=== PATIENT | male | born 1995 ===

== ENCOUNTER 2021-12-31 16:47 | Emergency (ER) | payer OTHER, SELFPAY ==
--- NOTE | ~2021-12-31 | XR_ITS ---
EXAMINATION: XR RIBS, RIGHT CLINICAL INFORMATION: Fall with right-sided rib pain COMPARISON: None TECHNIQUE: Frontal view the chest and 3 oblique views of the right ribs were obtained. FINDINGS: Lungs are clear. No consolidation, pneumothorax, or pleural effusion. The cardiomediastinal silhouette and pulmonary vasculature are normal. Osseous structures are unremarkable. Ribs are intact. No displaced rib fractures are identified. XR/XR ribs RT min 3V w CXR1V IMPRESSION: Unremarkable examination. No displaced rib fracture
[2021-12-31 17:06] VITALS: BP 101/57; PULSE 62; RESP 18; TEMP 36.7; O2SAT 100; BMI 22.6
[2021-12-31] MEDS: Lidocaine 4 % Patch ADH..PATCH 1 PATCH TRANSDERMA (17:41)
[2021-12-31] MEDS: Cyclobenzaprine HCl 5 MG TABLET PO (17:42)
[2021-12-31] MEDS: Ketorolac Tromethamine 30 MG/ML VIAL IM (17:42)
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
[2021-12-31 19:13] VITALS: RESP 17
== END 2021-12-31 19:17 | disposition home or self-care (01) ==
PROVIDERS: Emergency Provider Internal Medicine
DX: M54.50 Low back pain, unspecified (principal); S20.211A Contusion of right front wall of thorax, initial encounter; W00.0XXA Fall on same level due to ice and snow, initial encounter; Y93.89 Activity, other specified; Y92.410 Unspecified street and highway as the place of occurrence of the external cause; Y99.9 Unspecified external cause status
CPT/HCPCS: 71101; 96372; 99284; J1885

== ENCOUNTER 2023-02-20 12:16 | Emergency (ER) | payer OTHER, SELFPAY ==
[2023-02-20 12:34] VITALS: BP 108/59; PULSE 73; RESP 18; TEMP 36.6; O2SAT 99; BMI 19.8
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
[2023-02-20] MEDS: cefTRIAXone sodium 250 MG, Lidocaine HCl 1 % MPF 0.9 ML IM (13:40)
[2023-02-20 13:51] LABS: Appearance Urine Clear; Color Urine Yellow; Glucose Urine UA Negative (Negative); Leukocyte Esterase Urine Negative (Negative); Nitrite Urine Negative (Negative); Specific Gravity - Urine 1.025 (1.005-1.025); UMIC TRIGGER UACC YES; Urine Blood Moderate (2+) (Negative); Urine Ketones Negative (Negative); Urine Protein Negative (Neg-Trace)
[2023-02-20 13:55] LABS: Bacteria Urine None Seen (None Seen); Hyaline Casts Urine 0-2 /LPF (0-2); RBC Urine >20 /HPF (0-2); Squamous Epithelial Cell Urine 0-2 /HPF (0-2); WBC Urine 0-5 /HPF (0-5)
[2023-02-20 15:47] LABS: CT PCR DETECTED (Not Detect.); NG PCR NOT DETECTED (Not Detect.)
== END 2023-02-20 13:58 | disposition home or self-care (01) ==
PROVIDERS: Physician Assistant Medical; Emergency Provider Emergency Medicine
DX: Z20.2 Contact with and (suspected) exposure to infections with a predominantly sexual mode of transmission (principal)
CPT/HCPCS: 0353U; 81001; 96372; 99283; 99284; J0696

== ENCOUNTER 2023-02-23 15:06 | Emergency (ER) | payer OTHER, SELFPAY ==
--- NOTE | 2023-02-23 15:18 | ED_ITS ---
HPI - Back Pain/Injury General Chief Complaint: Back Pain/Injury <ALANA Esquivel Last Filed: 02/23/23 15:22> Stated Complaint: lower back pain/vomiting <ALANA Esquivel Last Filed: 02/23/23 15:22> Time Seen by Provider: 02/23/23 15:49 <ALANA Esquivel Last Filed: 02/23/23 15:22> History of Present Illness HPI Narrative: Patient complains of left lower back pain which started after lifting some boxes, he has had back pain before, pain is now rated as moderate, it is worse with movement there is no muscle weakness or loss of sensation there is no changes to bowel or bladder there is no fever no IV drug use, he has no incontinence no dysuria no frequency no fevers Patient did have 1 episode of vomiting after taking a muscle relaxer for the 1st time earlier today, when he got to the ER the nausea was almost gone he was given a Zofran now he is not nauseous and has no complaint of abdominal pain or diarrhea <ALANA Caldera Last Filed: 02/27/23 19:58> Related Data Home Medications: Previous Rx's Medication Instructions Recorded acetaminophen 500 mg tablet 500 mg PO Q6H PRN pain or fever 12/31/21 (Tylenol Extra Strength) #20 tabs cyclobenzaprine 5 mg tablet 5 mg PO Q8H PRN pain (scale score 12/31/21 7-10) 5 days #14 tabs lidocaine 5 % topical patch 1 patch topical DAILY PRN pain #30 12/31/21 (Lidoderm) ea naproxen 500 mg tablet 500 mg PO BID PRN pain 10 days #20 12/31/21 tabs doxycycline hyclate 100 mg tablet 100 mg PO BID #14 tabs 02/20/23 acetaminophen 500 mg tablet 1,000 mg PO QID PRN pain #30 tabs 02/23/23 ibuprofen 600 mg tablet 600 mg PO Q6H PRN pain #20 tabs 02/23/23 lidocaine 5 % topical patch 2 patch topical DAILY PRN back 02/23/23 pain #30 ea <ALANA Esquivel Last Filed: 02/23/23 15:22> Allergies/Adverse Reactions: Allergies Allergy/AdvReac Type Severity Reaction Status Date / Time No Known Allergies Allergy Verified 02/20/23 12:34 <ALANA Esquivel - Last Filed: 02/23/23 15:22> [facility] Past Medical History Source: nursing notes reviewed <ALANA Caldera - Last Filed: 02/27/23 19:58> Medical History: Medical History No known health problems <ALANA Esquivel - Last Filed: 02/23/23 15:22> Social History Social History: Social History Advance Directives: No Advance Directives Information Provided: No <ALANA Esquivel - Last Filed: 02/23/23 15:22> Physical Exam Vital Signs: Vital Signs: Last Vital Signs Temp 98.4 F 02/23/23 15:19 Pulse 76 02/23/23 15:19 Resp 18 02/23/23 15:19 BP 138/69 02/23/23 15:19 Pulse Ox 98 02/23/23 15:19 O2 Del Method Room Air 02/23/23 15:19 BMI result Body Mass Index 20.5 <ALANA Esquivel - Last Filed: 02/23/23 15:22> Vital Signs: Last Vital Signs Temp 98.4 F 02/23/23 15:19 Pulse 76 02/23/23 15:19 Resp 18 02/23/23 15:19 BP 138/69 02/23/23 15:19 Pulse Ox 98 02/23/23 15:19 O2 Del Method Room Air 02/23/23 15:19 BMI result Body Mass Index 20.5 <ALANA Caldera - Last Filed: 02/27/23 19:58> General appearance is no acute distress Head is normocephalic atraumatic The neck is supple Chest is clear chest wall nontender Heart no murmur Abdomen is soft nontender The back had lower lumbar paraspinal tenderness there is no midline bony tenderness, skin of the back is normal no CVA tenderness, pain is easily reproduced with bending and movement Extremities is full range of motion x4 Neuro motor is 5/5 x4, gait and balance normal, stye sensation in distal lower extremities intact and symmetrical <ALANA Caldera - Last Filed: 02/27/23 19:58> Course Course Course Narrative: RME--27yo M w/no sig PMHx c/o low back pain with assoc nausea and vomiting after taking a muscle relaxer. Admits to decreased/inability to tolerate PO, unsure if sx related to taking muscle relaxer on empty stomach. Reports recent heavy lifting at work. denies fever, chills, incontinence or retention Ambulating with steady gait, no red flag sx IM Toradol, Lidoderm patch and SL Zofran ordered <ALANA Esquivel - Last Filed: 02/23/23 15:22> RME--27yo M w/no sig PMHx c/o low back pain with assoc nausea and vomiting after taking a muscle relaxer. Admits to decreased/inability to tolerate PO, unsure if sx related to taking muscle relaxer on empty stomach. Reports recent heavy lifting at work. denies fever, chills, incontinence or retention Ambulating with steady gait, no red flag sx IM Toradol, Lidoderm patch and SL Zofran ordered patient had 1 episode of vomiting after taking a muscle relaxer for his back, the nausea resolved mostly on its own and then he was given a Zofran here and now he is not nauseous Before taking a muscle relaxer he had no nausea he never had any abdominal pain now he is tolerating p.o. and is only complaint is back pain with movement The back pain is left lower back pain worse with movement no radiation no change to bowel or bladder no neurologic symptoms no IV drug use no fever and well- appearing patient with musculoskeletal back pain is discharged <ALANA Caldera - Last Filed: 02/27/23 19:58> Medications Administered Discontinued Medications Generic Name Dose Route Start Last Admin Trade Name Ollie PRN Reason Stop Dose Admin Ketorolac Tromethamine 30 mg 02/23/23 15:21 02/23/23 15:51 Ketorolac Tromethamine 30 Mg/Ml Vial IM 02/23/23 15:22 30 mg ONCE ONE Administration Lidocaine 1 patch 02/23/23 15:21 02/23/23 15:50 Lidocaine 4 % Patch Adh..Patch TRANSDERMA 02/23/23 15:22 1 patch ONCE ONE Administration Protocol Ondansetron HCl 4 mg 02/23/23 15:21 02/23/23 15:50 Ondansetron Odt 4 Mg Tab.Oswaldodis TRANSLINGU 02/23/23 15:22 4 mg ONCE ONE Administration <ALANA Esquivel - Last Filed: 02/23/23 15:22> Medications Administered Discontinued Medications Generic Name Dose Route Start Last Admin Trade Name Freq PRN Reason Stop Dose Admin Ketorolac Tromethamine 30 mg 02/23/23 15:21 02/23/23 15:51 Ketorolac Tromethamine 30 Mg/Ml Vial IM 02/23/23 15:22 30 mg ONCE ONE Administration Lidocaine 1 patch 02/23/23 15:21 02/23/23 15:50 Lidocaine 4 % Patch Adh..Patch TRANSDERMA 02/23/23 15:22 1 patch ONCE ONE Administration Protocol Ondansetron HCl 4 mg 02/23/23 15:21 02/23/23 15:50 Ondansetron Odt 4 Mg Tab.Joelle TRANSLINGU 02/23/23 15:22 4 mg ONCE ONE Administration <ALANA Caldera - Last Filed: 02/27/23 19:58> Discharge Plan Discharge Clinical Impression: Strain of lumbar region <ALANA Esquivel - Last Filed: 02/23/23 15:22> Patient Disposition: Home, Self-Care <ALANA Esquivel - Last Filed: 02/23/23 15:22> Additional Instructions: follow with primary doctor for further evaluation as needed Return any time any worse condition or any concerns <ALANA Esquivel - Last Filed: 02/23/23 15:22> Prescriptions: New lidocaine 5 % adhesive patch,medicated 2 patch topical DAILY PRN (Reason: back pain) Qty: 30 0RF Rx Instructions: leave on most painful area for up to 12 hrs acetaminophen 500 mg tablet 1,000 mg PO QID PRN (Reason: pain) Qty: 30 0RF ibuprofen 600 mg tablet 600 mg PO Q6H PRN (Reason: pain) Qty: 20 0RF No Action acetaminophen [Tylenol Extra Strength] 500 mg tablet 500 mg PO Q6H PRN (Reason: pain or fever) Qty: 20 0RF lidocaine [Lidoderm] 5 % adhesive patch,medicated 1 patch topical DAILY MDD remove after 12 hours PRN (Reason: pain) Qty: 30 0RF Rx Instructions: leave on most painful area for up to 12 hrs naproxen 500 mg tablet 500 mg PO BID PRN (Reason: pain) 10 Days Qty: 20 0RF cyclobenzaprine 5 mg tablet 5 mg PO Q8H PRN (Reason: pain (scale score 7-10)) 5 Days Qty: 14 0RF doxycycline hyclate 100 mg tablet 100 mg PO BID Qty: 14 0RF <ALANA Esquivel - Last Filed: 02/23/23 15:22> Stand Alone Forms: Work/School Release <ALANA Esquivel - Last Filed: 02/23/23 15:22> Interventions: ED Discharge Assessment Last Done: 02/23/23 17:09 <ALANA Esquivel - Last Filed: 02/23/23 15:22> Discharge Date/Time: 02/23/23 17:10 <ALANA Esquivel - Last Filed: 02/23/23 15:22>
[2023-02-23 15:19] VITALS: BP 138/69; PULSE 76; RESP 18; TEMP 36.9; O2SAT 98; BMI 20.5
[2023-02-23] MEDS: Lidocaine 4 % Patch ADH..PATCH 1 PATCH TRANSDERMA (15:50)
[2023-02-23] MEDS: Ondansetron ODT 4 MG TAB.RAPDIS TRANSLINGU (15:50)
[2023-02-23] MEDS: Ketorolac Tromethamine 30 MG/ML VIAL IM (15:51)
== END 2023-02-23 17:10 | disposition home or self-care (01) ==
PROVIDERS: Emergency Provider Emergency Medicine
DX: S39.012A Strain of muscle, fascia and tendon of lower back, initial encounter (principal); X58.XXXA Exposure to other specified factors, initial encounter; Y93.9 Activity, unspecified; Y92.9 Unspecified place or not applicable; Y99.9 Unspecified external cause status; Z79.899 Other long term (current) drug therapy
CPT/HCPCS: 96372; 99283; 99284; J1885

== ENCOUNTER 2023-03-30 16:07 | Emergency (ER) | payer OTHER, SELFPAY ==
[2023-03-30 16:09] VITALS: BP 119/67; PULSE 113; RESP 16; TEMP 36.9; O2SAT 98; BMI 20.7
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
[2023-03-30 16:44] VITALS: BP 110/59; PULSE 83; RESP 16; O2SAT 97
== END 2023-03-30 16:47 | disposition home or self-care (01) ==
PROVIDERS: Emergency Provider Emergency Medicine
DX: Z04.1 Encounter for examination and observation following transport accident (principal); M54.6 Pain in thoracic spine
CPT/HCPCS: 99283; 99284

== ENCOUNTER 2023-05-22 15:02 | Emergency (ER) | payer OTHER, SELFPAY ==
[2023-05-22 15:12] VITALS: BP 110/75; PULSE 64; RESP 16; TEMP 36.6; O2SAT 99; BMI 21.6
--- NOTE | 2023-05-22 15:13 | ED.DENTAL ---
HPI - Dental/Oral General Chief complaint: Dental/Oral Stated complaint: tooth pain Time Seen by Provider: 05/22/23 15:18 Source: patient, RN notes reviewed and old records reviewed Mode of arrival: ambulatory History of Present Illness HPI Narrative: 28-year-old male with no significant past medical history presenting to the ED complaining of right upper dental pain x 2 days radiating to right ear/face. Admits has not seen a dentist for about 4 or 5 years. Denies recent dental procedures, fever/chills, drainage from area, sore throat, difficulty or inability to swallow MD Complaint: tooth pain Related Data Previous Rx's Medication Instructions Recorded acetaminophen 500 mg tablet 500 mg PO Q6H PRN pain or fever 12/31/21 (Tylenol Extra Strength) #20 tabs cyclobenzaprine 5 mg tablet 5 mg PO Q8H PRN pain (scale score 12/31/21 7-10) 5 days #14 tabs lidocaine 5 % topical patch 1 patch topical DAILY PRN pain #30 12/31/21 (Lidoderm) ea naproxen 500 mg tablet 500 mg PO BID PRN pain 10 days #20 12/31/21 tabs doxycycline hyclate 100 mg tablet 100 mg PO BID #14 tabs 02/20/23 acetaminophen 500 mg tablet 1,000 mg PO QID PRN pain #30 tabs 02/23/23 ibuprofen 600 mg tablet 600 mg PO Q6H PRN pain #20 tabs 02/23/23 lidocaine 5 % topical patch 2 patch topical DAILY PRN back 02/23/23 pain #30 ea acetaminophen 500 mg tablet 500 mg PO Q6H PRN fever or pain 03/30/23 (Tylenol Extra Strength) #14 tabs cyclobenzaprine 5 mg tablet 5 mg PO Q8H PRN pain (scale score 03/30/23 7-10) 5 days #14 tabs lidocaine 5 % topical patch 1 patch topical DAILY PRN pain #30 03/30/23 (Lidoderm) ea naproxen 500 mg tablet 500 mg PO BID PRN pain 10 days #20 03/30/23 tabs amoxicillin 875 mg-potassium 1 tab PO BID 7 days #14 tabs 05/22/23 clavulanate 125 mg tablet Allergies Allergy/AdvReac Type Severity Reaction Status Date / Time No Known Allergies Allergy Verified 02/20/23 12:34 Review of Systems Review of Systems: Constitutional: No Fever, No Chills ENT/Mouth: + dental pain, No Ear Pain, No Nasal Congestion, No Sinus Pain, No Hoarseness, No sore throat, No Rhinorrhea, No Swallowing Difficulty Cardiovascular: No Chest Pain, No SOB Respiratory: No Cough, No Sputum, No Wheezing Musculoskeletal: No joint pain Skin: No Skin Lesions, No rash Neuro: No Weakness Yes all other systems are reviewed and are negative Constitutional: Constitutional: Reports as per [facility] Past Medical History Attestation statement: The following information was validated with the patient. Source: old records reviewed Medical History No known health problems Social History Social History Alcohol intake: never Physical Exam Vital Signs: Vital Signs: Last Vital Signs Temp 97.8 F 05/22/23 15:12 Pulse 64 05/22/23 15:12 Resp 16 05/22/23 15:12 BP 110/75 05/22/23 15:12 Pulse Ox 99 05/22/23 15:12 O2 Del Method Room Air 05/22/23 15:12 BMI result Body Mass Index 21.6 Const: General: cooperative, healthy appearing and no acute distress Orientation/consciousness: patient oriented x3 Limitations: no limitations HEENT: Other: +mild right upper molar mild gingival swelling and tenderness. No fluctuance/induration or erythema Head: Yes normal to inspection and Yes atraumatic Ears: hearing grossly normal bilaterally, external ears normal, TM's normal bilaterally and mastoids normal General nose exam: Normal external nose present Face and sinus: Yes normal facial exam Teeth and gingiva: poor dentition Throat: Yes posterior oropharynx normal, Yes tonsils normal, Yes uvula midline, No peritonsillar mass and No uvular edema Eyes: General: appearance normal, both eyes and all related structures EOM: EOMs intact bilaterally Neck: Neck: Yes normal visual inspection and Yes no meningeal signs Resp: Effort & Inspection: normal respiratory effort and no respiratory distress Cardio: Rate: regular rate Skin: Rashes: no rashes Wounds: no wounds Neuro: General: patient oriented x3, tone normal and no meningeal signs Gait exam (Neuro): Normal gait present Extrem: General: Yes normal to inspection Medical Decision Making Medical Decision Making MDM Narrative: 28-year-old male with no significant past medical history presenting to the ED complaining of right upper dental pain x 2 days radiating to right ear/face. On exam vital signs stable, NAD, nontoxic appearing physical exam as noted above with diffuse dental caries. No evidence of abscess, cellulitis, mastoiditis or otitis media/externa Plan: P.o. antibiotics, dentistry follow-up Results discussed with patient including worrisome signs and symptoms and strict return precautions, and when to return to the emergency department. They verbalized understanding and feel safe for discharge at this time. Differential Diagnosis Differential Diagnoses: The differential diagnosis associated with the presentation includes As above External Record Review External record reviewed: Inpatient record, Office record, Outpatient record, Prior outpatient labs, Prior outpatient radiology, Primary care record and Outside ED record Prescription Management I considered prescription management with: Pain Medication and Antibiotic Social Determinants Patient?s care significantly limited by Social Determinants of Health including: Low income Discharge Plan Discharge Clinical Impression: Toothache, Dental caries Patient Disposition: Home, Self-Care Instructions: Toothache (ED) Additional Instructions: Augmentin as an antibiotic please take as prescribed Take Tylenol/ Motrin for pain follow-up with dentist If symptoms persist or worsen return to the ED Prescriptions: New amoxicillin-pot clavulanate 875-125 mg tablet 1 tab PO BID 7 Days Qty: 14 0RF No Action acetaminophen [Tylenol Extra Strength] 500 mg tablet 500 mg PO Q6H PRN (Reason: pain or fever) Qty: 20 0RF lidocaine [Lidoderm] 5 % adhesive patch,medicated 1 patch topical DAILY MDD remove after 12 hours PRN (Reason: pain) Qty: 30 0RF Rx Instructions: leave on most painful area for up to 12 hrs naproxen 500 mg tablet 500 mg PO BID PRN (Reason: pain) 10 Days Qty: 20 0RF cyclobenzaprine 5 mg tablet 5 mg PO Q8H PRN (Reason: pain (scale score 7-10)) 5 Days Qty: 14 0RF doxycycline hyclate 100 mg tablet 100 mg PO BID Qty: 14 0RF lidocaine 5 % adhesive patch,medicated 2 patch topical DAILY PRN (Reason: back pain) Qty: 30 0RF Rx Instructions: leave on most painful area for up to 12 hrs acetaminophen 500 mg tablet 1,000 mg PO QID PRN (Reason: pain) Qty: 30 0RF ibuprofen 600 mg tablet 600 mg PO Q6H PRN (Reason: pain) Qty: 20 0RF acetaminophen [Tylenol Extra Strength] 500 mg tablet 500 mg PO Q6H PRN (Reason: fever or pain) Qty: 14 0RF lidocaine [Lidoderm] 5 % adhesive patch,medicated 1 patch topical DAILY MDD remove after 12 hours PRN (Reason: pain) Qty: 30 0RF Rx Instructions: leave on most painful area for up to 12 hrs naproxen 500 mg tablet 500 mg PO BID PRN (Reason: pain) 10 Days Qty: 20 0RF cyclobenzaprine 5 mg tablet 5 mg PO Q8H PRN (Reason: pain (scale score 7-10)) 5 Days Qty: 14 0RF Referrals: Damian Willard [Dentist] - Enoc Degroot DMD [Dentist] - Murali Bowen DMD [Dentist] -
== END 2023-05-22 15:24 | disposition home or self-care (01) ==
PROVIDERS: Emergency Provider Emergency Medicine
DX: K02.9 Dental caries, unspecified (principal); K08.89 Other specified disorders of teeth and supporting structures
CPT/HCPCS: 99282; 99283

== ENCOUNTER 2023-05-30 15:25 | Emergency (ER) | payer OTHER, SELFPAY ==
[2023-05-30 15:29] VITALS: BP 106/62; PULSE 62; RESP 18; TEMP 36.1; O2SAT 97; BMI 20.5
--- NOTE | 2023-05-30 15:29 | ED.DENTAL ---
HPI - Dental/Oral General Chief complaint: Dental/Oral Stated complaint: dental and head pain Time Seen by Provider: 05/30/23 15:37 Source: patient Mode of arrival: ambulatory Limitations: no limitations History of Present Illness HPI Narrative: 28yoM presenting to the ED with c/o of dental pain worse today. Was seen here on 05/22/23 and referred to Dentist. Seen by Dentist on Wednesday and told You will need a root canal and I have a follow-up on Wednesday, and the Dentist told me they sent something for pain at [facility] on [facility] and they do not have anything and I am in a lot of pain, I have my root canal at 9am Wednesday . Was seen here for same complaint on 05/22/23 and was placed on abx's and finished the abx's Wednesday afternoon therefore Dentist did not start a new course of abx's. Denies fevers, chills, trouble swallowing or breathing. MD Complaint: tooth pain Teeth map: 1. Onset (ago): day(s) (10 days worse today) Duration: constant Severity: moderate Relieving factors: nothing Exacerbating factors: nothing Context: history of dental caries and poor dental care Associated symptoms: ear pain Treatment prior to arrival: topical analgesic, oral analgesic and other ([id number] Motrin and Tylenol) Related Data Previous Rx's Medication Instructions Recorded acetaminophen 500 mg tablet 500 mg PO Q6H PRN pain or fever 12/31/21 (Tylenol Extra Strength) #20 tabs cyclobenzaprine 5 mg tablet 5 mg PO Q8H PRN pain (scale score 12/31/21 7-10) 5 days #14 tabs lidocaine 5 % topical patch 1 patch topical DAILY PRN pain #30 12/31/21 (Lidoderm) ea naproxen 500 mg tablet 500 mg PO BID PRN pain 10 days #20 12/31/21 tabs doxycycline hyclate 100 mg tablet 100 mg PO BID #14 tabs 02/20/23 acetaminophen 500 mg tablet 1,000 mg PO QID PRN pain #30 tabs 02/23/23 ibuprofen 600 mg tablet 600 mg PO Q6H PRN pain #20 tabs 02/23/23 lidocaine 5 % topical patch 2 patch topical DAILY PRN back 02/23/23 pain #30 ea acetaminophen 500 mg tablet 500 mg PO Q6H PRN fever or pain 03/30/23 (Tylenol Extra Strength) #14 tabs cyclobenzaprine 5 mg tablet 5 mg PO Q8H PRN pain (scale score 03/30/23 7-10) 5 days #14 tabs lidocaine 5 % topical patch 1 patch topical DAILY PRN pain #30 03/30/23 (Lidoderm) ea naproxen 500 mg tablet 500 mg PO BID PRN pain 10 days #20 03/30/23 tabs acetaminophen 325 mg capsule 650 mg PO Q6H PRN fever or pain 05/22/23 (Tylenol) #14 caps amoxicillin 875 mg-potassium 1 tab PO BID 7 days #14 tabs 05/22/23 clavulanate 125 mg tablet ibuprofen 600 mg tablet 600 mg PO Q8H PRN fever or pain 05/22/23 #14 tabs tramadol 50 mg tablet 50 mg PO Q8H PRN pain #3 tabs 05/22/23 tramadol 50 mg tablet 50 mg PO Q8H PRN pain, severe 3 05/22/23 days #3 tabs clindamycin HCl 150 mg capsule 450 mg PO Q8H dental 05/30/23 caries/infection 7 days #63 caps oxycodone 5 mg tablet 5 mg PO Q6H PRN pain #10 tabs 05/30/23 Allergies Allergy/AdvReac Type Severity Reaction Status Date / Time No Known Allergies Allergy Verified 05/30/23 15:29 Review of Systems Review of Systems: Constitutional : No Fever, No Chills, No changes in PO intake, No difficulty speaking, no recent dental procedure, no heat or cold intolerance while eating, no recent face trauma, ENT/Mouth : + Dental pain, No Sore throat, No Jaw pain, No throat swelling, No swallowing difficulty, no change in voice, No facial swelling, no drooling, no trismus, no bleeding, no lacerations, no tongue swelling, gum swelling, Eyes: No Eye Pain, No periorbital Swelling Cardiovascular : No Chest Pain, No SOB Respiratory : No Cough, No Sputum, No Wheezing, No Smoke Exposure, No Dyspnea Gastrointestinal : No Nausea, No Vomiting, No Diarrhea Genitourinary : No Dysuria Musculoskeletal : No Myalgias Skin : No rash, no facial swelling or redness, Neuro : No Weakness, No Numbness, No Headache Yes all other systems are reviewed and are negative [facility] Past Medical History Attestation statement: The following information was validated with the patient. Source: old records reviewed and nursing notes reviewed Medical History No known health problems Social History Social History Alcohol intake: never Physical Exam Vital Signs: Vital Signs: Last Vital Signs Temp 97.0 F 05/30/23 15:29 Pulse 62 05/30/23 15:29 Resp 18 05/30/23 15:29 BP 106/62 05/30/23 15:29 Pulse Ox 97 05/30/23 15:29 O2 Del Method Room Air 05/30/23 15:29 BMI result Body Mass Index 20.5 vital signs have been reviewed as normal and appeared to be correct. Blood pressure normal. Heart rate normal. Respiration rate normal. Temperature normal. Oxygen saturation normal. Appearance: Alert. Oriented X3. No acute distress. Head: Normal external exam. Normocephalic. Atraumatic. Eyes: PERRLA. EOMI. Conjunctiva and sclera normal. Eyelids normal. ENT: EAC normal. TM's Normal. Pharynx normal. Uvula midline. Moist mucous membranes. No trismus noted. No drooling noted. No muffled voice noted. Dentition: Patient with poor dentition throughout with multiple dental caries. Gingival within normal limits. No fluctuance. Not consistent with peritonsillar abscess. Not consistent with dental abscess. No salivary duct obstruction noted. Neck: Normal inspection. Neck supple. FROM. No adenopathy. Thyroid Normal. No meningeal signs. No neck mass noted. Trachea midline. CVS: Normal heart rate and rhythm. Heart sound normal. No murmurs noted. Pulses normal throughout. Respiratory: No respiratory distress. Painless inspiration. Breath sounds normal. No wheezes/rales/rhonchi noted. Chest nontender. No accessory muscle usage noted or decreased air movement noted. Back: Full range of motion noted. Skin: Skin warm and dry. Normal skin color. Normal skin turgor. No rashes/lesions/lacerations noted. Extremities:Extremities exhibit normal range of motion. Extremities nontender. Neuro: Oriented X 3. No motor deficit. No sensory deficit. Reflexes normal. Course Course Course Narrative: Given HPI and PE, most likely diagnosis: Dental pain due to caries. No facial swelling, signs of infection, cellulits, lymphangitis, or abscess. Not consistent with dental abscess/gingival abscess/peritonsillar abscess. Not consistent with Ludwigs angina. Patient is afebrile, well appearing in no acute distress. No ginigival swelling, or bleeding. Multiple dental carries and poor dentition. Patient has appointment Wednesday. Will treat pain. Educated on signs of infection and advised to return to ED, should experience facial swelling, fever, N/V. Patient understands and agrees with plan. Medical Decision Making Differential Diagnosis Differential Diagnoses: The differential diagnosis associated with the presentation includes Not consistent with dental abscess/gingival abscess/peritonsillar abscess. Not consistent with Ludwigs angina. Independent Historian Clinical information obtained from an independent historian. History obtained from or confirmed by: Other (Patient) External Record Review External record reviewed: Inpatient record, Office record, Outpatient record, Prior outpatient labs, Prior outpatient radiology, Primary care record and Outside ED record All prior labs/imaging/EKG and no successful in her system reviewed by myself including patient's last visit here on 05/22/2023 where he was given Augmentin Prescription Management I considered prescription management with: Pain Medication and Antibiotic Chronic Conditions Patient?s care impacted by: Other (Poor dental care) Social Determinants Patient?s care significantly limited by Social Determinants of Health including: Low income and Other Social Determinant of Health Discharge Plan Discharge Clinical Impression: Pain, dental, Dental caries Patient Disposition: Home, Self-Care Instructions: Toothache (ED) Prescriptions: New oxycodone 5 mg tablet 5 mg PO Q6H PRN (Reason: pain) Qty: 10 0RF Rx Instructions: Partial Fill upon patient request. clindamycin HCl 150 mg capsule 450 mg PO Q8H 7 Days Qty: 63 0RF No Action acetaminophen [Tylenol Extra Strength] 500 mg tablet 500 mg PO Q6H PRN (Reason: pain or fever) Qty: 20 0RF lidocaine [Lidoderm] 5 % adhesive patch,medicated 1 patch topical DAILY MDD remove after 12 hours PRN (Reason: pain) Qty: 30 0RF Rx Instructions: leave on most painful area for up to 12 hrs naproxen 500 mg tablet 500 mg PO BID PRN (Reason: pain) 10 Days Qty: 20 0RF cyclobenzaprine 5 mg tablet 5 mg PO Q8H PRN (Reason: pain (scale score 7-10)) 5 Days Qty: 14 0RF amoxicillin-pot clavulanate 875-125 mg tablet 1 tab PO BID 7 Days Qty: 14 0RF ibuprofen 600 mg tablet 600 mg PO Q8H PRN (Reason: fever or pain) Qty: 14 0RF acetaminophen [Tylenol] 325 mg capsule 650 mg PO Q6H PRN (Reason: fever or pain) Qty: 14 0RF tramadol 50 mg tablet 50 mg PO Q8H PRN (Reason: pain, severe) 3 Days Qty: 3 0RF Rx Instructions: Partial fill upon patient request tramadol 50 mg tablet 50 mg PO Q8H PRN (Reason: pain) Qty: 3 0RF doxycycline hyclate 100 mg tablet 100 mg PO BID Qty: 14 0RF lidocaine 5 % adhesive patch,medicated 2 patch topical DAILY PRN (Reason: back pain) Qty: 30 0RF Rx Instructions: leave on most painful area for up to 12 hrs acetaminophen 500 mg tablet 1,000 mg PO QID PRN (Reason: pain) Qty: 30 0RF ibuprofen 600 mg tablet 600 mg PO Q6H PRN (Reason: pain) Qty: 20 0RF acetaminophen [Tylenol Extra Strength] 500 mg tablet 500 mg PO Q6H PRN (Reason: fever or pain) Qty: 14 0RF lidocaine [Lidoderm] 5 % adhesive patch,medicated 1 patch topical DAILY MDD remove after 12 hours PRN (Reason: pain) Qty: 30 0RF Rx Instructions: leave on most painful area for up to 12 hrs naproxen 500 mg tablet 500 mg PO BID PRN (Reason: pain) 10 Days Qty: 20 0RF cyclobenzaprine 5 mg tablet 5 mg PO Q8H PRN (Reason: pain (scale score 7-10)) 5 Days Qty: 14 0RF Referrals: Physician,Unknown J [Primary Care Provider] - (Your dentist on Wednesday as scheduled) Print Language: Algerian
== END 2023-05-30 15:46 | disposition home or self-care (01) ==
LOC: HO.ED 15:38
PROVIDERS: Emergency Provider Student in an Organized Health Care Education/Training Program
DX: K02.9 Dental caries, unspecified (principal)
CPT/HCPCS: 99282